=== PATIENT | female | born 1980 | race Caucasian/White ===

== ENCOUNTER 2020-06-01 18:38 | Emergency (ER) | payer OTHER ==
[~2020-06-01] VITALS: Ht 167.6 cm; Wt 73.0 kg
[2020-06-01 19:16] VITALS: BP 112/75
--- NOTE | 2020-06-01 19:22 | PHYS DOC ---
Past History Past Medical History: No Pertinent History Adult General Chief Complaint Chief Complaint: FOOT INJURY PAIN HPI HPI Patient is a 39-year-old female who presents with left foot pain. Onset was 3 days ago when getting out of bed. Reports stubbing ventral portion of foot and ever since then has had focal nonradiating pain to navicular bone area. 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 Patient denies any history of recent febrile illness, no COVID-19 contacts, no changes in her bladder and bowel function, able to ambulate but admits she has pain and difficulty doing so. Review of Systems Review of Systems Fourteen body systems of review of systems have been reviewed. See HPI for pertinent positives and negative responses, other [place] all other systems are negative, non-pertinent or non-contributory Allergies Allergies Allergies Coded Allergies Type Severity Reaction Last Updated Verified No Known Drug Allergies 06/01/20 No Physical Exam Physical Exam Constitutional: Well developed, well nourished, no acute distress, non-toxic appearance. HENT: Normocephalic, atraumatic, bilateral external ears normal, oropharynx moist, no oral exudates, nose normal. Eyes: PERRLA, EOMI, conjunctiva normal, no discharge. Neck: Normal range of motion, no tenderness, supple, no stridor. Cardiovascular: Heart rate regular, sinus rhythm Lungs & Thorax: Bilateral breath sounds clear to auscultation Abdomen: Bowel sounds normal, soft, no tenderness, no masses, no pulsatile masses. Nonsurgical abdomen, no peritoneal signs Skin: Warm, dry, no erythema, no rash. Back: No tenderness, no CVA tenderness. Extremities: No cyanosis, no clubbing, ROM intact, no edema. Antalgic gait Bilateral feet and ankles unless otherwise noted: Proximal Tibia nontender Medial malleolus nontender Lateral malleolus nontender Calcaneus nontender Left navicular bone/tarsometatarsal region tender to palpation Base of 5th nontender Rest of foot and ankle without marked tenderness Varus and Valgus Stress of ankle joint without significant laxity Full Range of Motion with full strength Skin on plantar section of midfoot without ecchymosis Capillary refill <2seconds and distal Sensation to light touch in tact per routine Compartments surrounding are soft Neurologic: Alert and oriented X 3, normal motor & sensory function, no focal deficits noted. Psychologic: Affect normal, judgement normal, mood normal. Current Patient Data Vital Signs Vital Signs Date Time Temp Pulse Resp B/P (MAP) Pulse Ox O2 Delivery O2 Flow Rate FiO2 06/01/20 19:16 97.7 73 20 112/75 (87) 98 Room Air EKG EKG [] Radiology/Procedures Radiology/Procedures PROCEDURE: FOOT LEFT 3V EXAM: 3 views left foot DATE: 06/01/2020 7:21 PM INDICATION: Reason: Navicular pain on palpation, no trauma / Spl. Instructions: / History: COMPARISON: No Prior FINDINGS/ IMPRESSION: 1. No evidence of acute fracture or dislocation. 2. Joint spaces are preserved without significant degenerative/proliferative change. 3. Hallux valgus. 4. Type II navicular without obvious fracture. Cross-sectional imaging can be performed if there is persistent clinical concern for fracture. Electronically signed by: Moody Dahl MD (06/01/2020 7:54 PM) [facility] Course & Med Decision Making Course & Med Decision Making Well-appearing and ambulatory patient seen on immediate ER arrival Airway patent, breathing unlabored, vital signs non-concerning Comprehensive history and physical exam obtained, positive [place] ankle rules, midfoot pain at location of navicular prompting radiograph imaging. Negative imaging of left foot discussed in length. Discussed this may be an acute presentation of more serious pathology or fracture that might require further diagnostic imaging Nonetheless, given that patient is ambulatory and has good outpatient follow-up with PCP, joint decision made to discharge home with continued supportive care advised Patient educated on rice protocol and utilizing NSAIDs/Tylenol as needed for pain Strict return precautions were discussed with good understanding, all questions and concerns addressed prior to ER departure Patient follow-up with PCP in upcoming 1 to 7 days for reevaluation to ensure improved symptomatology with consideration for outpatient physical therapy and/or reimaging as indicated Dragon Disclaimer Dragon Disclaimer This electronic medical record was generated, in whole or in part, using a voice recognition dictation system. Departure Departure: Impression: Primary Impression: Left foot pain Disposition: 01 HOME/RESIDENCE PRIOR TO ADM Condition: STABLE Referrals: JEREMY KIM MD (PCP) Patient Instructions: Ankle Exercises, Generic-SportsMed, RICE - Routine Care for Injuries Additional Instructions: As discussed prior to ER departure, please call your PCP first thing tomorrow morning to schedule follow-up within the upcoming 1 to 10 days There were no obvious or emergent pathology found during your ER stay today As discussed, this might be an acute presentation of more serious pathology I strongly recommend you to continue supportive care, icing region daily and performing provided exercises until you are seen by her primary care physician There is potential need for outpatient physical therapy and other diagnostic studies if this does not improve in the upcoming 7 days As always, please feel free to return to our ER if there is anything more we can do for your health, it was a pleasure to take care of you! Justification of Admission: Justification of Admission: Justification of Admission Dx: N/A RONNA LENZ DO Jun 01, 2020 19:22
--- NOTE | 2020-06-01 19:57 | RAD ---
EXAM: 3 views left foot DATE: 06/01/2020 7:21 PM INDICATION: Reason: Navicular pain on palpation, no trauma / Spl. Instructions: / History: COMPARISON: No Prior FINDINGS/ IMPRESSION: 1. No evidence of acute fracture or dislocation. 2. Joint spaces are preserved without significant degenerative/proliferative change. 3. Hallux valgus. 4. Type II navicular without obvious fracture. Cross-sectional imaging can be performed if there is persistent clinical concern for fracture. Electronically signed by: Moody Dahl MD (06/01/2020 7:54 PM) [facility]
== END 2020-06-01 20:36 | disposition home or self-care (01) ==
LOC: ER 18:38
DX: M79.672 Pain in left foot (principal)
CPT/HCPCS: 73630; 99283